=== PATIENT | male | born 1965 | race Caucasian/White ===

== ENCOUNTER 2017-09-04 18:42 | Emergency (ER) | payer OTHER, MEDICAID ==
[2017-09-04] MEDS: KETOROLAC 30 MG/ML VIAL (J1885) IV (19:33)
[2017-09-04] MEDS: PANTOPRAZOLE 40MG INJ (PROTONIX) (C9113) IV (19:33)
[2017-09-04] MEDS: NS 1,000 ML IV (19:33)
[2017-09-04] MEDS: ONDANSETRON 4MG/2ML VIAL (J2405) IV (19:34)
[2017-09-04 19:47] LABS: BASO % 0.4 % (0.0-1.0); EOS % 0.4 % (0.0-3.0); HEMATOCRIT 48.8 % (42.0-52.0); HEMOGLOBIN 16.2 g/dl (13.5-17.5); IMMATURE GRANULOCYTE % 0.1 % (0-3.0); LYMPH # 0.9 10^3/uL (1.5-4.5); LYMPH % 9.9 % (24.0-44.0); MEAN CORPUSCULAR HEMOGLOBIN 28.7 pg (27.0-33.0); MEAN CORPUSCULAR HGB CONC 33.2 g/dl (32.0-36.5); MEAN CORPUSCULAR VOLUME 86.4 fl (80.0-96.0); MONO # 0.4 10^3/uL (0.0-0.8); MONO % 4.1 % (0.0-5.0); NEUTROPHILS # 7.8 10^3/uL (1.8-7.7); NEUTROPHILS % 85.1 % (36.0-66.0); PLATELET COUNT, AUTOMATED 196 10^3/uL (150-450); RED BLOOD COUNT 5.65 10^6/uL (4.30-6.10); RED CELL DISTRIBUTION WIDTH 12.7 % (11.5-14.5); WHITE BLOOD COUNT 9.1 10^3/uL (4.0-10.0)
[2017-09-04 19:59] LABS: KETONE, URINE AUTO RFX 1+ mg/dL (NEGATIVE); LEUKOCYTE ESTERASE UR AUTO RFX NEGATIVE (NEGATIVE); MUCUS, URINE RFX LARGE (NEGATIVE); NITRITE, URINE AUTO RFX NEGATIVE (NEGATIVE); RBC, URINE AUTO RFX 34 /HPF (0-3); SPECIFIC GRAVITY UR AUTO RFX 1.027 (1.002-1.035); SQUAM EPITHELIAL CELL UR AURFX 0 /HPF (0-6); WBC, URINE AUTO RFX 1 /HPF (0-3)
[2017-09-04 20:09] LABS: INR 0.98; PROTHROMBIN TIME 13.1 SECONDS (12.4-14.5)
[2017-09-04 20:25] LABS: ALBUMIN 4.6 GM/DL (3.2-5.2); ALBUMIN/GLOBULIN RATIO 1.53 (1.00-1.93); ALKALINE PHOSPHATASE 56 U/L (45-117); ALT/SGPT 48 U/L (12-78); AMYLASE 35 U/L (25-115); ANION GAP 7 MEQ/L (8-16); AST/SGOT 23 U/L (7-37); BILIRUBIN,DIRECT 0.5 MG/DL (0.0-0.2); BILIRUBIN,TOTAL 2.6 MG/DL (0.2-1.0); BLOOD UREA NITROGEN 21 MG/DL (7-18); CALCIUM LEVEL 10.1 MG/DL (8.5-10.1); CARBON DIOXIDE LEVEL 29 MEQ/L (21-32); CHLORIDE LEVEL 108 MEQ/L (98-107); CREATININE FOR GFR 2.19 MG/DL (0.70-1.30); GLOMERULAR FILTRATION RATE 34.1 (>56); GLUCOSE, FASTING 106 MG/DL (70-100); LIPASE 77 U/L (73-393); SODIUM LEVEL 144 MEQ/L (136-145); TOTAL PROTEIN 7.6 GM/DL (6.4-8.2)
[2017-09-04] MEDS: NORCO 5/325MG TABLET (BULK FOR ED) PO (21:30)
== END 2017-09-04 21:31 | disposition home or self-care (01) ==
LOC: M ED 18:42
DX: N20.1 Calculus of ureter (principal); N19 Unspecified kidney failure
CPT/HCPCS: C9113

== ENCOUNTER 2023-03-12 09:05 | Emergency (ER) | payer OTHER ==
[~2023-03-12] VITALS: Ht 188 cm; Wt 92.7 kg
[~2023-03-12 09:05] MED LIST: FLOM0.4C39 PO; HYDR-3715 PO; ZOFR4TAB14 PO
[2023-03-12 10:39] LABS: BASO % 0.4 % (0.0-1.0); EOS # 0.2 10^3/uL (0.0-0.5); EOS % 2.9 % (0.0-3.0); HEMATOCRIT 47.9 % (42.0-52.0); LYMPH # 0.9 10^3/uL (1.5-5.0); LYMPH % 12.6 % (24.0-44.0); MEAN CORPUSCULAR HEMOGLOBIN 28.9 pg (27.0-33.0); MEAN CORPUSCULAR HGB CONC 33.4 g/dl (32.0-36.5); MEAN CORPUSCULAR VOLUME 86.5 fl (80.0-96.0); MONO # 0.4 10^3/uL (0.0-0.8); MONO % 6.3 % (2.0-8.0); NEUTROPHILS # 5.4 10^3/uL (1.5-8.5); NEUTROPHILS % 77.5 % (36.0-66.0); PLATELET COUNT, AUTOMATED 160 10^3/uL (150-450); RED BLOOD COUNT 5.54 10^6/uL (4.30-6.10)
[2023-03-12] MEDS ORDERED: BRIL90TA (10:47)
[2023-03-12] MEDS ORDERED: ATOR80TA59 (10:47)
[2023-03-12] MEDS ORDERED: ASPI-226 (10:47)
[2023-03-12] MEDS ORDERED: NITR0.4S14 (10:47)
[2023-03-12] MEDS ORDERED: METO1TAB32 (10:47)
[2023-03-12 10:55] LABS: INR 1.02; PROTHROMBIN TIME 13.1 SECONDS (12.5-14.5)
[2023-03-12 10:56] LABS: PARTIAL THROMBOPLASTIN TIME 24.7 SECONDS (24.8-34.2)
[2023-03-12 11:09] LABS: ETHYL ALCOHOL (ETHANOL) < 0.003 % (0.000-0.010)
[2023-03-12 11:11] LABS: BLOOD UREA NITROGEN 20 MG/DL (9-23); CALCIUM LEVEL 9.6 MG/DL (8.5-10.1); CARBON DIOXIDE LEVEL 28 MMOL/L (20-31); CHLORIDE LEVEL 107 MMOL/L (98-107); CK-MB VALUE MASS 1.6 NG/ML (<3.6); CREATININE FOR GFR 1.06 MG/DL (0.70-1.30); GLOMERULAR FILTRATION RATE > 60.0 (>56); GLUCOSE, FASTING 110 MG/DL (60-100); MAGNESIUM LEVEL 2.2 MG/DL (1.8-2.4); POTASSIUM SERUM 4.4 MMOL/L (3.5-5.1); SODIUM LEVEL 140 MMOL/L (136-145)
[2023-03-12 11:15] LABS: THYROID STIMULATING HORMONE 2.215 uIU/ML (0.55-4.78)
[2023-03-12 11:16] LABS: FREE T4 1.03 NG/DL (0.89-1.76)
[2023-03-12 11:30] LABS: CPK CREATINE PHOSPHOKINASE 142 U/L (46-171); MB/CK RELATIVE INDEX 1.12 (< OR =4)
[2023-03-12 11:53] LABS: CK-MB VALUE MASS 1.3 NG/ML (<3.6)
[2023-03-12 12:02] LABS: MB/CK RELATIVE INDEX 0.96 (< OR =4)
[2023-03-12 12:53] LABS: AMPHETAMINES LEVEL URINE NEGATIVE (NEGATIVE); BARBITURATES URINE NEGATIVE (NEGATIVE); BENZODIAZEPINES URINE NEGATIVE (NEGATIVE)
[2023-03-12 12:54] LABS: CANNABINOIDS URINE NEGATIVE (NEGATIVE); COCAINE METABOLITE URINE NEGATIVE (NEGATIVE); METHADONE URINE NEGATIVE (NEGATIVE); OPIATES URINE NEGATIVE (NEGATIVE); PHENCYCLIDINE URINE NEGATIVE (NEGATIVE)
[2023-03-12 14:15] VITALS: BP 111/66; O2SAT 98
[2023-03-12 14:36] VITALS: TEMP 97.6
== END 2023-03-12 14:38 | disposition home or self-care (01) ==
LOC: M ED 09:05
DX: R00.2 Palpitations (principal); I49.1 Atrial premature depolarization; R00.1 Bradycardia, unspecified; Z86.79 Personal history of other diseases of the circulatory system

== ENCOUNTER 2024-11-04 08:53 | Emergency (ER) | payer OTHER ==
[~2024-11-04] VITALS: Ht 188 cm; Wt 97.4 kg
[~2024-11-04 08:53] MED LIST changes: +ASPI-226; +ATOR80TA59; +BRIL90TA; -FLOM0.4C39 PO; +METO1TAB32; +NITR0.4S14; +TAMS-18 PO
[2024-11-04 10:08] LABS: BASO # 0.1 10^3/uL (0.0-0.2); BASO % 0.9 % (0.0-1.0); EOS # 0.2 10^3/uL (0.0-0.5); EOS % 3.4 % (0.0-3.0); LYMPH # 1.2 10^3/uL (1.5-5.0); LYMPH % 22.2 % (24.0-44.0); MONO # 0.3 10^3/uL (0.0-0.8); MONO % 5.8 % (2.0-8.0); NEUTROPHILS # 3.6 10^3/uL (1.5-8.5); NEUTROPHILS % 67.5 % (36.0-66.0); PLATELET COUNT, AUTOMATED 154 10^3/uL (150-450)
[2024-11-04 10:38] LABS: ALT/SGPT 30.0 U/L (7.0-40); AST/SGOT 26.0 U/L (<34); CALCIUM LEVEL 9.7 MG/DL (8.5-10.1); CARBON DIOXIDE LEVEL 24.0 MMOL/L (20-31); CHLORIDE LEVEL 106.0 MMOL/L (98-107); CREATININE FOR GFR 1.2 MG/DL (0.70-1.30); GLOMERULAR FILTRATION RATE 70.5 (>56); POTASSIUM SERUM 4.2 MMOL/L (3.5-5.1); SODIUM LEVEL 142.0 MMOL/L (136-145)
[2024-11-04 10:42] LABS: THYROXINE (T4) 6.4 UG/DL (4.5-10.9)
[2024-11-04 11:29] VITALS: BP 159/73; TEMP 97.4; O2SAT 97
== END 2024-11-04 11:41 | disposition home or self-care (01) ==
LOC: M ED 08:53
DX: E03.9 Hypothyroidism, unspecified (principal); R06.02 Shortness of breath; I25.2 Old myocardial infarction; Z95.5 Presence of coronary angioplasty implant and graft; Z79.82 Long term (current) use of aspirin